=== PATIENT | female | born 1930 | race Caucasian/White ===

== ENCOUNTER 2016-08-02 04:13 | Inpatient (IN) | payer MEDICARE, OTHER ==
[2016-07-20 14:55] LABS: BASOPHILS 0.2 %; BASOPHILS ABSOLUTE 0.01 10/3/uL (0.0-0.16); EOSINOPHILS 2.3 %; EOSINOPHILS ABSOLUTE 0.11 10/3/uL (0.0-0.53); HEMATOCRIT 40.7 % (36.0-48.0); HEMOGLOBIN 13.8 g/dL (12.0-16.0); IMMATURE GRANULOCYTES 0.2 %; IMMATURE GRANULOCYTES ABSOLUTE 0.01 10/3/uL (0.0-0.11); MEAN CORPUS HGB CONC 33.9 g/dL (32.0-36.0); MEAN CORPUSCULAR HEMOGLOB 30.7 pg (26.0-34.0); MEAN CORPUSCULAR VOLUME 90.4 fL (80-100); MEAN PLATELET VOLUME 9.3 fL (9.2-13.0); MONOCYTES 10.5 %; MONOCYTES ABSOLUTE 0.51 10/3/uL (0.21-1.20); NEUTROPHILS 47.8 %; NEUTROPHILS ABSOLUTE 2.33 10/3/uL (2.02-8.40); PLATELET COUNT 200 10/3/uL (150-400); RBC DISTRIBUTION WIDTH 13.4 % (12.0-16.0); WHITE BLOOD CELLS 4.9 10/3/uL (4.5-10.5)
[2016-07-20 14:56] LABS: MANUAL DIFF NO %
[2016-07-20 15:00] LABS: PROTIME (NOT ORD) 13.2 SEC (12.0-14.5)
[2016-07-20 15:05] LABS: A/G RATIO 1.1 (0.7-1.9); ALBUMIN 3.3 G/DL (3.5-5.0); ALKALINE PHOSPHATASE 113 U/L (45-117); BUN (BLOOD UREA NITROGEN) 16 MG/DL (6-23); CALCIUM, SERUM 8.8 MG/DL (8.5-10.4); CHLORIDE, SERUM 103 MMOL/L (96-112); CO2 (CARBON DIOXIDE) 27 MMOL/L (24-34); CREATININE 0.69 MG/DL (0.55-1.02); GFR AFRICAN AMERICAN 91 ML/MIN (>=60); GFR NON AFRICAN AMERICAN 79 ML/MIN (>=60); GLOBULIN 3.1 G/DL (2.5-4.1); GLUCOSE, SERUM 134 MG/DL (60-99); POTASSIUM, SERUM 3.7 MMOL/L (3.5-5.3); SGOT(AST) 11 U/L (5-40); SGPT(ALT) 21 U/L (5-65); SODIUM, SERUM 140 MMOL/L (135-148); TOTAL BILIRUBIN 0.5 MG/DL (0-1.2); TOTAL PROTEIN 6.4 G/DL (6.0-8.5)
[2016-07-20 17:47] LABS: ASCORBIC ACID (UR NOT ORDER) 40 (NEG); BILIRUBIN, URINE NEGATIVE (NEG); KETONE, URINE NEGATIVE (NEG); LEUKOCYTE ESTERASE(NOT OR SMALL (NEG); WBC (NOT ORDERED) (RFLEX) 6 (0-5)
--- NOTE | ~2016-08-02 | OP ---
Record Of Operation [facility] [address] [place]. [address] NAME: TRU MAYBERRY : 29 STATUS : DIS IN PAT#: [id number] AGE: 85 ADM/REG DATE : 08/02/16 MR#: [id number] REPORT SERV DATE: 08/30/16 DICTATED BY: BILLY BARRIOS DATE: 08/06/16 REPORT STATUS : Draft TRANSCRIBED BY: MODL DATE: 08/06/16 DATE OF PROCEDURE: 08/06/2016 ZENON AND CARDIOVERSION REPORT The patient's attending is Dr. Venegas following right knee arthroplasty. The patient hl7 interface developer is Dr. Jeff Marroquin. INDICATION: This is an 85-year-old female with postop atrial fibrillation and rapid ventricular response. INR is therapeutic at 3.3 today. An informed consent was obtained and signed on the chart. A time-out was performed and sedation was per Anesthesia. Esophageal intubation was without difficulty. TECH: TD. The overall quality of study was good. Please see the transthoracic echocardiogram from 08/03/2016 for full cardiac dimensions and valvular regurgitation. CHAMBERS: 1. The left atrium is mildly enlarged. The left atrial appendage was multilobed with prominent pectinates. There was no thrombus identified. The left atrial appendage color Doppler findings were normal and Doppler velocity exceeded 40-60 cm/sec. 2. The left ventricle was normal in size with a visually estimated LVEF of 60%. There were no regional wall motion abnormalities. 3. The right atrium is normal in size. Superior and inferior vena cava appeared normal. There was a small Chiari network noted associated with the eustachian valve. There was no other mass or thrombus seen. 4. The right ventricle was normal in size and systolic function. VALVES: 1. The aortic valve morphology was trileaflet with adequate mobility. The aortic regurgitation was not assessed. 2. The mitral valve morphology was normal with flow of all leaflets. Mitral regurgitation was not assessed. 3. The pulmonic valve appeared grossly normal with adequate leaflet mobility. Pulmonic regurgitation was not assessed. 4. The tricuspid valve morphology was normal with flow of all leaflets. Tricuspid regurgitation was not assessed. OTHER: The interatrial septum was examined with multiple angulations and was deviated, but did not appear aneurysmal. There was a patent foramen ovale with left-right interatrial shunt seen by color Doppler. There was no pericardial effusion. There was a tiny pleural effusion seen. The descending thoracic aorta and aortic arch were normal in caliber with mild atherosclerotic changes and no aneurysm or dissection. Record Of Operation [facility] [place]. [address] NAME: TRU MAYBERRY : 29 STATUS : DIS IN PAT#: [id number] AGE: 85 ADM/REG DATE : 08/02/16 MR#: [id number] REPORT SERV DATE: 08/30/16 DICTATED BY: BILLY BARRIOS. DATE: 08/06/16 REPORT STATUS : Draft TRANSCRIBED BY: MODL DATE: 08/06/16 CARDIOVERSION: A single synchronized 200-joule biphasic energy shock was delivered with pads in the anterior-posterior position with successful cardioversion to sinus rhythm. COMPLICATIONS: None. CONCLUSION: 1. Mildly enlarged left atrium with no left atrial or left atrial appendage thrombus. 2. Successful cardioversion to sinus rhythm. 3. Normal LV size with preserved EF, 60%. 4. Patent foramen ovale as outlined above. AEA/MODL Billy Barrios M.D. / [id number] CC: Catherine Hernandez M.D.
--- NOTE | ~2016-08-02 | DS ---
Discharge Summary [facility] [address] [place]. [address] NAME: TRU MAYBERRY : 29 STATUS : DIS IN PAT#: [id number] AGE: 85 ADM/REG DATE : 08/02/16 MR#: [id number] REPORT SERV DATE: 08/17/16 DICTATED BY: GUILLERMINA GUPTA DATE: 08/16/16 REPORT STATUS : Draft TRANSCRIBED BY: OBDULIO DATE: 08/16/16 Data Collection from hospitalization DISCHARGE DIAGNOSES: 1. Severe right knee degenerative joint disease. 2. Hypertension. 3. Diabetes. 4. Nonobstructive coronary artery disease. 5. Hyperlipidemia. 6. Obesity. 7. New-onset atrial fibrillation. CONSULTATIONS: 1. Dayo Guadarrama MD. 2. Janis Diaz NP. PROCEDURES PERFORMED: 1. Right posterior stabilized total knee replacement, cemented, 08/02/2016. 2. Transesophageal echocardiogram and cardioversion on 08/06/2016. PATHOLOGY: Bone and soft tissue, right knee arthroplasty - changes consistent with degenerative joint disease. Mild chronic synovitis, nonspecific. MEDICATIONS: Mirella Aspirin 325 mg daily, Neurontin 100 mg at 4:00 p.m. and 200 mg at bedtime, Stowe 7.5/325 one tablet every four hours as needed, Hyzaar half tablet every morning, multivitamins one tablet daily, Mysoline 50 mg at bedtime, Ultram 50 mg every six hours as needed, Desyrel 75 mg at bedtime, iron daily as instructed, and Coumadin as instructed. CONDITION AT DISCHARGE: Stable. DISPOSITION: The patient was discharged home to be followed by home health care on a regular diet with activities as instructed. HOSPITAL COURSE: This is an 85-year-old female who is seen in the clinic with complaints of [id number] intermittent bilateral knee pain. The approximate date of onset was in 2012. The patient said her bilateral knee pain started after a broken left hip and total hip arthroplasty/hemiarthroplasty performed in [place]. The patient has right knee severe degenerative joint disease. Treatment options were discussed and it was elected to proceed with surgical intervention. She was admitted to the hospital at this time for further evaluation and treatment. Upon admission, the patient was taken to the operating room where she underwent the above- mentioned procedure. Operatively, the patient had gone into atrial flutter and was seen by Dr. Dayo Guadarrama. The anesthesiologist and I both had conversation, but it was determined by the package winder safe to proceed with her total knee arthroplasty, we would treat her atrial flutter afterwards. We proceeded with her surgical intervention, which she tolerated well. She had been seen by Dr. Dayo Guadarrama regarding the new-onset atrial flutter Discharge Summary [address] [place]. [address] NAME: TRU MAYBERRY : 29 STATUS : DIS IN PAT#: [id number] AGE: 85 ADM/REG DATE : 08/02/16 MR#: [id number] REPORT SERV DATE: 08/17/16 DICTATED BY: GUILLERMINA GUPTA DATE: 08/16/16 REPORT STATUS : Draft TRANSCRIBED BY: OBDULIO DATE: 08/16/16 preoperatively. She had been started on a diltiazem drip and was tolerating this well from a hemodynamic standpoint with fairly good rate control (ventricular rate ranging from 90-115 beats per minute). She, otherwise, had no complaints at that time. She had been normotensive. Following her surgery, he would schedule her for an elective transesophageal echocardiogram and DC cardioversion with initiation of anticoagulation at that time if it was okay with Surgery. Echocardiogram would be helpful as well. On postop day #1, aspirin and statin agent continued. Her Coumadin had been discontinued. GENE hose were in place. She was evaluated by Occupational and Physical Therapy. On 08/04/2016, she was in atrial fibrillation. She was eating well. INR level was 1.6. Cardizem drip was continued. On 08/05/2016, she continued to participate with Physical Therapy and was doing well. Her GENE hose remained in place. The following day, she underwent a transesophageal echocardiogram and cardioversion by Janis Diaz. She tolerated this well, and there were no complications. She had a mildly enlarged left atrium with no left atrial or left atrial appendage thrombus. There was successful cardioversion to a sinus rhythm. She had normal left ventricular size with preserved ejection fraction of 60%. There was a patent foramen ovale. Discharge planning was performed. Lovenox had been stopped. Sotalol was continued. She remained in a normal sinus rhythm. Coumadin was held that evening. On 08/07/2016, she continued to do well. She remained in a normal sinus rhythm. She was on low-dose sotalol and Coumadin. Discharge instructions were given. Due to her improved and stable condition, she was discharged home to be followed by home health care with the above-stated instructions. Information collected by: Candice Michael I submit the above information as my discharge summary. JESI/OBDULIO Freda Gupta M.D. / [id number] CC: Catherine Hernandez M.D. Vimal Ramjee, MD
--- NOTE | ~2016-08-02 | OP ---
Record Of Operation [facility] [address] [place]. [address] NAME: TRU MAYBERRY : 29 STATUS : ADM IN PAT#: [id number] AGE: 85 ADM/REG DATE : 08/02/16 MR#: [id number] REPORT SERV DATE: 08/02/16 DICTATED BY: GUILLERMINA GUPTA DATE: 08/02/16 REPORT STATUS : Draft TRANSCRIBED BY: OBDULIO DATE: 08/02/16 DATE OF PROCEDURE: 08/02/2016 PREOPERATIVE DIAGNOSIS: Severe right knee degenerative joint disease. POSTOPERATIVE DIAGNOSIS: Severe right knee degenerative joint disease. OPERATION: Right posterior stabilized total knee replacement, cemented. SIDE: Right side. SIZE: See chart. ANESTHESIA: See chart. ESTIMATED BLOOD LOSS: About 10 mL. TOURNIQUET TIME: Approximately 1 hour and 10 minutes. COMPLICATIONS: None. SPECIMENS: Articular surfaces. PROCEDURE: The patient was appropriately identified and marked. The operative side agreed with the consent form and it was checked by all members of the surgical team. The patient was taken to the operating room and anesthesia was induced per the anesthesiologist. The patient was carefully transferred to the operating table without incident. The patient received appropriate prophylactic antibiotics and a Altamirano catheter was placed in the standard sterile technique. The patient was then carefully positioned, padded, prepped and draped in the normal sterile fashion. The operative leg had been appropriately identified and checked by all members of the operating team against the consent form and found to be the correct limb. The patient's lower extremity was then exsanguinated with an Cameron wrap and a tourniquet was inflated to 350 mm/Hg. Sharp dissection was carried out through a straight midline longitudinal incision and electrocautery through the fat. Sharp quad splitting approach was carried out between about the medial 10 percent of the tendon and the lateral 90 percent of the tendon and down around the medial aspect of the patella and then 1 cm medial to the tibial tubercle. The patella was carefully everted and the posterior fat pad was excised and gentle MCL elevation was carried out off the proximal medial tibia subperiosteally. IM guide was placed in the distal femur after using the appropriate drill. The distal femoral cutting guide was held with 2 pins and the distal cut made. Meniscal fragments and the ACL and the PCL were excised with electrocautery, carefully staying anterior to the posterior fat pad. The proximal tibial alignment guide was set appropriately and the proximal tibial cut made. Spacer block verified full extension with excellent mediolateral balance. Sizing guide was used to place 2 drill holes in the distal femur and the four-in-one cutting block was then placed, impacted and checked Record Of Operation [facility] [address] [place]. [address] NAME: TRU MAYBERRY : 29 STATUS : ADM IN PAT#: [id number] AGE: 85 ADM/REG DATE : 08/02/16 MR#: [id number] REPORT SERV DATE: 08/02/16 DICTATED BY: GUILLERMINA GUPTA DATE: 08/02/16 REPORT STATUS : Draft TRANSCRIBED BY: OBDULIO DATE: 08/02/16 to be sure it would not notch with an susan wing and it was held with 2 pins. The anterior cut, posterior cut, anterior chamfer and posterior chamfer cuts were made. The pins were removed and the block was removed. A posterior release was carried out with a curved 3/4 inch osteotome staying right on the bone posteriorly. The box-cut guide was then placed, impacted and held with 2 pins and a reciprocating saw was used to cut out the box. With the trial components in place, there was excellent medial/lateral balance. The patella was then measured with a caliper, cut first with an oscillating saw and then reamed with a patella reamer. With the trial patella in place, there was excellent patellar tracking. Rotation was marked on the tibia and the tibia prepared with a drill and stamp chisel. All surfaces were then copiously irrigated with pulsatile lavage, carefully dried and then vacuum-mixed cement was pressurized with a cement gun in a doughy phase. The tibial component was placed, impacted and excess cement was removed. The cement was then pressurized in the femur and placed on the posterior runners of the femoral component, which was placed, impacted and excess cement removed and the knee was brought out into extension on a trial spacer. The cement was then pressurized in the patella. Patellar component was then placed, clamped and excess cement was removed. Once all cement was hardened, the knee was taken through range of motion. Further extruded cement was removed with a small osteotome. Then based on the trial inserts, we decided on the actual insert, which was placed in the standard fashion and held with a locking mechanism. The knee was then copiously irrigated and then closed in a layered fashion over a medium Hemovac drain superolaterally with interrupted #1 in the deep fascia, 2-0 subcutaneous and peg in the skin. The wounds were dressed sterilely and the tourniquet was deflated. The patient was then awakened and taken to the postanesthesia care unit without incident. All counts were correct at the end of the case. ADDENDUM: Preop, the patient went into A-flutter, was seen by Cardiology. The anesthesiologist and I both had conversation if determined with the receivables specialist it was safe to proceed with her total knee arthroplasty, then treat her A-flutter afterwards. The patient on the recommendations proceeded with the same. The family wished to proceed as well. MELIZAB/MODL Freda Gupta M.D. / [id number] CC: Freda Gupta M.D.
--- NOTE | ~2016-08-02 | CN ---
Consultation Report [facility] [address] [place]. [address] NAME: TRU MAYBERRY : 29 STATUS : ADM [facility]#: [id number] AGE: 85 ADM/REG DATE : 08/02/16 MR#: [id number] REPORT SERV DATE: 08/02/16 DICTATED BY: DAYO GALVEZ DATE: 08/02/16 REPORT STATUS : Draft TRANSCRIBED BY: MODCharlie DATE: 08/02/16 DATE OF CONSULTATION: 08/02/2016 REASON FOR CONSULTATION: New-onset atrial flutter, preoperatively. HISTORY OF PRESENT ILLNESS: Ms. Mayberry is a very pleasant 85-year-old female with a history of nonobstructive CAD, hypertension, hyperlipidemia, and diabetes, who presents electively for right knee replacement. She was initially in sinus rhythm, but converted to atrial flutter with rapid ventricular rate in the preoperative holding area. This prompted consultation today. She otherwise has no complaints whatsoever. She denies having any chest pains, pressures, palpitations, dizziness, or light headedness. She has been started on diltiazem drip and is tolerating this well from a hemodynamic standpoint with fairly good rate control (ventricular rate ranging from 90 to 115 beats per minute). She otherwise has no other complaints at this point in time. PAST MEDICAL HISTORY: As above. SOCIAL HISTORY: The patient lives at home with her and functions independently under normal circumstances. She denies drinking alcohol, smoking, or doing drugs. FAMILY HISTORY: Noncontributory for premature cardiovascular disease. REVIEW OF SYSTEMS: As above, all other systems otherwise negative. HOME MEDICATIONS: 1. Tylenol. 2. Aspirin. 3. Neurontin. 4. Ibuprofen. 5. Losartan/HCTZ. 6. Primidone. 7. Trazodone. 8. Iron supplements. PHYSICAL EXAMINATION: VITAL SIGNS: Blood pressure 125/83, pulse 90 to 110 beats per minute (atrial flutter with variable AV block), afebrile. GENERAL: Well developed, well nourished, no acute distress. NEURO: Awake, alert and oriented x3; no focal deficits, appropriate mood. HEENT: Moist mucous membranes, anicteric sclerae, no nasal discharge. NECK: No JVD, no carotid bruit. LUNGS: Clear to auscultation bilaterally, no wheezes, rales or rhonchi. CV: Irregular. Normal S1, S2. No murmurs, rubs, or gallops. ABD: Soft, non-tender, non-distended, no rebound or guarding. Consultation Report [facility] [address] [place]. [address] NAME: TRU MAYBERRY : 29 STATUS : ADM IN PAT#: [id number] AGE: 85 ADM/REG DATE : 08/02/16 MR#: [id number] REPORT SERV DATE: 08/02/16 DICTATED BY: DAYO GALVEZ DATE: 08/02/16 REPORT STATUS : Draft TRANSCRIBED BY: MODL DATE: 08/02/16 EXT: No pitting edema, normal distal pulses. SKIN: Warm, dry and intact; no rash. PERTINENT TEST FINDINGS: EKG with atrial flutter with 2:1 AV conduction (before initiation of diltiazem drip), otherwise, no definitive ischemic changes/nonspecific ST-T wave changes. Labs from 07/20 with hemoglobin 13.8, platelets 200, INR 1, creatinine 0.69, BUN 16, potassium 3.7. Normal LFTs. Albumin 3.1. IMPRESSION AND PLAN: Ms. Mayberry is a very pleasant 85-year-old female with a history of nonobstructive CAD, diabetes, hypertension, and hyperlipidemia, who presents for an elective right knee replacement with new-onset atrial flutter in the preoperative holding area. She is tolerating diltiazem well. She has been normotensive, with heart rates ranging from 90 to 115 beats per minute, and is completely asymptomatic at this point in time. In light of this, I believe that it will be fine for her to proceed with right knee replacement as planned today. Following this, I will schedule her for an elective transesophageal echocardiogram/DC cardioversion on Saturday with initiation of anticoagulation at that time if okay with surgery. Otherwise, checking an echocardiogram will be helpful as well. During the interim time period, a diltiazem drip may be used for rate control. VR/MODL Dayo Galvez MD / [id number] CC: Catherine Hernandez M.D.
[~2016-08-02 04:13] MED LIST: ASABAYER PO; HYZAAR 100/25 T1 TAB PO; KLONO2 PO; MOTRIN IB200 MG PO; NEUR100 PO; PRIM50B PO; PRIMIDONE; T PO; TRAZ50 PO; [UNRECOGNIZED DRUG - CODE] PO
[2016-08-03 07:08] LABS: INTERNATIONAL NORMAL RATI 1.2 UNITS (-)
[2016-08-03 07:09] LABS: HEMOGLOBIN 10.3 g/dL (12.0-16.0)
[2016-08-03 07:13] LABS: BUN (BLOOD UREA NITROGEN) 18 MG/DL (6-23); CALCIUM, SERUM 7.8 MG/DL (8.5-10.4); CHLORIDE, SERUM 102 MMOL/L (96-112); CO2 (CARBON DIOXIDE) 23 MMOL/L (24-34); CREATININE 0.91 MG/DL (0.55-1.02); GFR AFRICAN AMERICAN 66 ML/MIN (>=60); GFR NON AFRICAN AMERICAN 57 ML/MIN (>=60); GLUCOSE, SERUM 132 MG/DL (60-99); POTASSIUM, SERUM 4.2 MMOL/L (3.5-5.3); SODIUM, SERUM 135 MMOL/L (135-148)
[2016-08-04 05:19] LABS: HEMATOCRIT 31.6 % (36.0-48.0); HEMOGLOBIN 10.8 g/dL (12.0-16.0); MEAN CORPUS HGB CONC 34.2 g/dL (32.0-36.0); MEAN CORPUSCULAR HEMOGLOB 30.7 pg (26.0-34.0); MEAN CORPUSCULAR VOLUME 89.8 fL (80-100); PLATELET COUNT 169 10/3/uL (150-400); RBC DISTRIBUTION WIDTH 13.7 % (12.0-16.0)
[2016-08-04 05:24] LABS: INTERNATIONAL NORMAL RATI 1.6 UNITS (-)
[2016-08-04 05:34] LABS: PROTIME (NOT ORD) 18.5 SEC (12.0-14.5)
[2016-08-04 05:44] LABS: MANUAL DIFF YES %; RED CELL COUNT 3.52 10/6/uL (4.0-5.6); WHITE BLOOD CELLS 8.6 10/3/uL (4.5-10.5)
[2016-08-04 05:50] LABS: CALCIUM, SERUM 8.5 MG/DL (8.5-10.4); CHLORIDE, SERUM 101 MMOL/L (96-112); CO2 (CARBON DIOXIDE) 22 MMOL/L (24-34); CREATININE 0.58 MG/DL (0.55-1.02); GFR AFRICAN AMERICAN 97 ML/MIN (>=60); GFR NON AFRICAN AMERICAN 83 ML/MIN (>=60); GLUCOSE, SERUM 143 MG/DL (60-99); POTASSIUM, SERUM 4.4 MMOL/L (3.5-5.3); SODIUM, SERUM 133 MMOL/L (135-148)
[2016-08-04 06:04] LABS: BUN (BLOOD UREA NITROGEN) 14 MG/DL (6-23)
[2016-08-04 06:58] LABS: BAND NEUTROPHILS 13 %; EOSINOPHILS 3 %; EOSINOPHILS ABSOLUTE (CALC) 0.26 10/3/uL (0.0-0.53); LYMPHOCYTES 11 %; LYMPHOCYTES ABSOLUTE (CALC) 0.95 10/3/uL (0.67-4.30); MONOCYTES 8 %; MONOCYTES ABSOLUTE (CALC) 0.69 10/3/uL (0.21-1.20); NEUTROPHILS ABSOLUTE (CALC) 6.71 10/3/uL (2.02-8.40); PLATELET ESTIMATE ADQ (ADEQUATE); SEGMENTED NEUTROPHIL (0) 65 %; TOTAL NUCLEATED CELLS 100
[2016-08-04 07:00] LABS: TOXIC GRANULATION SLT
[2016-08-04 07:01] LABS: VACUOLATED NEUTROPHILES OCC
[2016-08-04 07:02] LABS: TEARDROP SHAPED RBCS OCC (0-2/OIF)
[2016-08-04 09:07] LABS: FREE T4 1.27 NG/DL (0.76-1.46); ULTRASENSITIVE TSH 0.788 MCIU/ML (0.358-3.740)
[2016-08-05 07:01] LABS: BASOPHILS 0.2 %; BASOPHILS ABSOLUTE 0.01 10/3/uL (0.0-0.16); EOSINOPHILS 1.3 %; EOSINOPHILS ABSOLUTE 0.08 10/3/uL (0.0-0.53); HEMOGLOBIN 9.6 g/dL (12.0-16.0); IMMATURE GRANULOCYTES 0.2 %; IMMATURE GRANULOCYTES ABSOLUTE 0.01 10/3/uL (0.0-0.11); LYMPHOCYTES 20.8 %; LYMPHOCYTES ABSOLUTE 1.29 10/3/uL (0.67-4.30); MEAN CORPUS HGB CONC 34.3 g/dL (32.0-36.0); MEAN CORPUSCULAR HEMOGLOB 30.8 pg (26.0-34.0); MEAN CORPUSCULAR VOLUME 89.7 fL (80-100); MEAN PLATELET VOLUME 9.7 fL (9.2-13.0); MONOCYTES 14.4 %; MONOCYTES ABSOLUTE 0.89 10/3/uL (0.21-1.20); NEUTROPHILS 63.1 %; NEUTROPHILS ABSOLUTE 3.91 10/3/uL (2.02-8.40); PLATELET COUNT 171 10/3/uL (150-400); RBC DISTRIBUTION WIDTH 14.3 % (12.0-16.0); RED CELL COUNT 3.12 10/6/uL (4.0-5.6); WHITE BLOOD CELLS 6.2 10/3/uL (4.5-10.5)
[2016-08-05 07:07] LABS: INTERNATIONAL NORMAL RATI 2.8 UNITS (-)
[2016-08-05 07:10] LABS: MANUAL DIFF NO %
[2016-08-05 07:13] LABS: BUN (BLOOD UREA NITROGEN) 11 MG/DL (6-23); CALCIUM, SERUM 8.2 MG/DL (8.5-10.4); CHLORIDE, SERUM 101 MMOL/L (96-112); CO2 (CARBON DIOXIDE) 24 MMOL/L (24-34); CREATININE 0.58 MG/DL (0.55-1.02); GFR AFRICAN AMERICAN 97 ML/MIN (>=60); GFR NON AFRICAN AMERICAN 83 ML/MIN (>=60); GLUCOSE, SERUM 116 MG/DL (60-99); POTASSIUM, SERUM 4.3 MMOL/L (3.5-5.3); SODIUM, SERUM 134 MMOL/L (135-148)
[2016-08-06 09:02] LABS: BASOPHILS 0.3 %; BASOPHILS ABSOLUTE 0.02 10/3/uL (0.0-0.16); EOSINOPHILS 1.4 %; HEMATOCRIT 29.1 % (36.0-48.0); IMMATURE GRANULOCYTES 0.3 %; IMMATURE GRANULOCYTES ABSOLUTE 0.02 10/3/uL (0.0-0.11); LYMPHOCYTES 20.5 %; LYMPHOCYTES ABSOLUTE 1.43 10/3/uL (0.67-4.30); MANUAL DIFF NO %; MEAN CORPUS HGB CONC 34.4 g/dL (32.0-36.0); MEAN CORPUSCULAR HEMOGLOB 30.8 pg (26.0-34.0); MEAN CORPUSCULAR VOLUME 89.5 fL (80-100); MONOCYTES 12.6 %; MONOCYTES ABSOLUTE 0.88 10/3/uL (0.21-1.20); NEUTROPHILS 64.9 %; NEUTROPHILS ABSOLUTE 4.51 10/3/uL (2.02-8.40); PLATELET COUNT 212 10/3/uL (150-400); RBC DISTRIBUTION WIDTH 14.7 % (12.0-16.0); RED CELL COUNT 3.25 10/6/uL (4.0-5.6)
[2016-08-06 09:10] LABS: INTERNATIONAL NORMAL RATI 3.3 UNITS (-); PROTIME (NOT ORD) 33.3 SEC (12.0-14.5)
[2016-08-06 09:17] LABS: CALCIUM, SERUM 8.3 MG/DL (8.5-10.4); CHLORIDE, SERUM 103 MMOL/L (96-112); CO2 (CARBON DIOXIDE) 22 MMOL/L (24-34); CREATININE 0.41 MG/DL (0.55-1.02); GFR AFRICAN AMERICAN 108 ML/MIN (>=60); GFR NON AFRICAN AMERICAN 94 ML/MIN (>=60); GLUCOSE, SERUM 110 MG/DL (60-99); PHOSPHORUS, SERUM 2.3 MG/DL (2.5-4.5); SODIUM, SERUM 136 MMOL/L (135-148)
[2016-08-06 09:21] LABS: ALBUMIN 2.5 G/DL (3.5-5.0); BUN (BLOOD UREA NITROGEN) 7 MG/DL (6-23)
[2016-08-06 18:07] LABS: PROTIME (NOT ORD) 31.1 SEC (12.0-14.5)
[2016-08-07 06:03] LABS: INTERNATIONAL NORMAL RATI 3.2 UNITS (-); PROTIME (NOT ORD) 32.8 SEC (12.0-14.5)
[2016-08-07] MEDS ORDERED: MULTIPLE VIT PO (11:38)
[2016-08-07] MEDS ORDERED: ULTRAM50 PO (11:39)
[2016-08-07] MEDS ORDERED: C2 (11:40)
[2016-08-07] MEDS ORDERED: NORCO1 TA2 PO (11:41)
[2016-08-09] MEDS ORDERED: BETAP120 (04:43)
[2016-08-10] MEDS ORDERED: ASAB PO (08:40)
[2016-08-10] MEDS ORDERED: LOP25 PO (08:41)
[2016-08-10] MEDS ORDERED: PROTONIX20 MG PO (08:42)
[2016-08-10] MEDS ORDERED: SUCR PO (08:43)
[2016-08-10] MEDS ORDERED: C1 (08:47)
[2016-12-03] MEDS ORDERED: NEUR300 PO (09:42)
[2016-12-03] MEDS ORDERED: KLONO1 PO (09:42)
[2016-12-05] MEDS ORDERED: C25 PO (10:43)
[2016-12-05] MEDS ORDERED: PCET PO (10:44)
== END 2016-08-07 14:36 | disposition home health service (06) | DRG 470 ==
LOC: SDC/OF 04:13 → PACU 16:20 → 1SO 17:44
PROVIDERS: Nurse Practitioner; Specialist; Student in an Organized Health Care Education/Training Program
PROC: 0SRC0J9 Replacement of Right Knee Joint with Synthetic Substitute, Cemented, Open Approach (ICD-10-PCS; principal; 2016-08-02 05:30)
PROC: B246ZZ4 Ultrasonography of Right and Left Heart, Transesophageal (ICD-10-PCS; 2016-08-06)
DX: M17.0 Bilateral primary osteoarthritis of knee (principal); J90 Pleural effusion, not elsewhere classified; I48.92 Unspecified atrial flutter; Q21.1 Atrial septal defect; I48.91 Unspecified atrial fibrillation; G62.9 Polyneuropathy, unspecified; E11.9 Type 2 diabetes mellitus without complications; E78.5 Hyperlipidemia, unspecified; I10 Essential (primary) hypertension; E66.9 Obesity, unspecified; Z68.31 Body mass index [BMI] 31.0-31.9, adult; I25.10 Atherosclerotic heart disease of native coronary artery without angina pectoris; Z79.82 Long term (current) use of aspirin; Z79.899 Other long term (current) drug therapy
CPT/HCPCS: 71020; 80048; 80053; 80069; 81001; 82962; 84132; 84439; 84443; 84481; 85014; 85018; 85025; 85610; 87086; 87641; 88305; 88311; 92960; 93005; 93312; 93320; 93325; 97110-GP; 97116-GP; 97161-GP; 97165-GO; A9270-GY; C1776; C8929; G8978-CK-GP; G8979-CH-GP; J0690; J1885; J2250; J2274; J2370; J2405; J2795; J3010; Q9957